=== PATIENT | male | born 1975 | race Caucasian/White ===

== ENCOUNTER 2016-07-10 10:30 | Emergency (ER) | payer BC ==
--- NOTE | ~2016-07-10 | HP ---
History And Physical [id number] [place]. [address] NAME: LIZA RICO : 71 STATUS : ADM Maximino PAT#: [id number] AGE: 41 ADM/REG DATE : 07/10/16 MR#: [id number] REPORT SERV DATE: 07/10/16 DICTATED BY: ZAYNAB [place] DATE: 07/10/16 REPORT STATUS : Draft TRANSCRIBED BY: MODL DATE: 07/10/16 DATE OF ADMISSION: 07/10/2016 CHIEF COMPLAINT: Chest pain. HISTORY OF PRESENT ILLNESS: This is a 41-year-old male with no prior history of coronary artery disease, who states onset of midsternal chest pain around 0640 this morning. He reports he was getting ready to go to work when he developed a sensation of "pressing under my rib cage" at the midsternum with radiation to the back. He went ahead and left for work and on arrival someone there checked his blood pressure, it was 182/110. His coworkers found him to be red faced and flushed. He states the pain is most severe, 7/10 in intensity. He took two baby aspirin and EMS was called. EMS gave him two more aspirin and his blood pressure was reportedly 172/112 on arrival, although I do not see this documented. The patient states the pain eased on the way to the hospital here and lasted approximately 45 minutes. There was no radiation nor was there any accompanying shortness of breath. The patient denies any prior cardiac workup. Denies personal history for PA, CVA, PE, or DVT. Denies any recent fever, cough, or chills. No other recent chest pain episodes. MEDICAL HISTORY: 1. Mixed hyperlipidemia with reported total cholesterol of 300, takes Krill oil. 2. Allergic rhinitis. 3. Bilateral heel spurs, takes NSAIDs. 4. Obesity. SURGICAL HISTORY: Tonsillectomy approximately 20 years ago and a right inguinal hernia repair. HOME MEDICATIONS: Zyrtec 10 mg daily, Advil 600 mg daily, Krill oil one cap daily, Aleve 660 mg daily, Mucinex D over the counter. ALLERGIES: NO KNOWN DRUG ALLERGIES. SOCIAL HISTORY: The patient is , at bedside. He works as a exercise teacher. Denies history of smoking. Denies alcohol or illicit drug use. FAMILY HISTORY: Grandfather and uncle both with PA in her early 40s. Father is alive and had CABG in his 50s. Siblings with hypertension and hyperlipidemia. No premature cardiovascular among first-degree relatives. REVIEW OF SYSTEMS: Negative except as indicated above. PHYSICAL EXAMINATION: VITAL SIGNS: Blood pressure 139/95, heart rate 78, temperature 97.8, respirations 12, pulse oximetry 100% room air. History And Physical [address] [address] NAME: LIZA RICO : 71 STATUS : ADM Maximino PAT#: [id number] AGE: 41 ADM/REG DATE : 07/10/16 MR#: [id number] REPORT SERV DATE: 07/10/16 DICTATED BY: ZAYNAB [place] DATE: 07/10/16 REPORT STATUS : Draft TRANSCRIBED BY: DANIELE DATE: 07/10/16 GENERAL: Well developed, well nourished, in no acute distress HEENT: Anicteric. Normal EOM. Head normocephalic. PERRLA, no xanthelasma. NECK: Supple. No JVD. Carotids normal without bruits. LUNGS: Clear to auscultation bilaterally anterior and posterior. Respirations even and unlabored. CARDIAC: S1, S2 regular rate and rhythm. No murmurs, rubs, or gallops. No chest wall tenderness. ABDOMEN: Normal bowel sounds. Soft and nontender to palpation. No masses or organomegaly. EXTREMITIES: Trace edema to the bilateral lower extremities. Normal distal pulses. No calf tenderness. DP/PT and radial pulses palpable bilaterally. No clubbing or cyanosis. SKIN: Warm and dry. Normal turgor. No pallor or cyanosis. MUSCULOSKELETAL: Moving all extremities x4. Normal muscle strength. NEURO/PSYCH: Alert and oriented with appropriate affect. LABORATORY DATA: Sodium 142, potassium 4.5, BUN 13, creatinine 1.0, magnesium 2.4, white blood count 5.5, hemoglobin 13.6, hematocrit 38.7. Troponin less than 0.02. Chest x-ray shows no acute cardiopulmonary processes. EKG indicates sinus bradycardia with no ischemic changes. ASSESSMENT/PLAN: 1. Midsternal chest pain in a 41-year-old male with cardiovascular risk factors of premature coronary artery disease and mixed hyperlipidemia. His initial presentation is negative for acute coronary syndrome. We will plan to repeat a troponin approximately one hour as well as EKG. If these remain normal, we will send the patient for a treadmill only stress test today. If stress testing is low risk, we will plan to discharge him home later today with close followup with his primary care physician. 2. Elevated blood pressure. This could be secondary to the patient's pain and stress test. We will continue to monitor. If two more blood pressures are elevated above 140/90, we will begin a blood pressure medicine on discharge. 3. Family history of early coronary artery disease. 4. Obesity. I have counseled patient on dietary changes as well as incorporating exercise into his lifestyle. 5. Mixed hyperlipidemia, currently on Krill oil. Continue follow up with his primary care physician regarding lipid profile and consider starting statin. 6. Overuse of NSAIDs. I have instructed the patient to stop the ibuprofen and only take Aleve 2 tabs twice a day max. I have instructed him only to take this with food. The patient denies any indigestion currently. DBT/DANIELE Zaynab Ny NP / [phone] History And Physical [address] [address] NAME: LIZA RICO : 71 STATUS : ADM Maximino PAT#: [id number] AGE: 41 ADM/REG DATE : 07/10/16 MR#: [id number] REPORT SERV DATE: 07/10/16 DICTATED BY: ZAYNAB [place] DATE: 07/10/16 REPORT STATUS : Draft TRANSCRIBED BY: DANIELE DATE: 07/10/16 CC: Ifrah Collazo, MSN, [employer] APPLICATOR-BC Patricia Giraldo M.D.
[2016-07-10 09:46] LABS: BASOPHILS 0.5 %; BASOPHILS ABSOLUTE 0.03 10/3/uL (0.0-0.16); EOSINOPHILS 0.9 %; EOSINOPHILS ABSOLUTE 0.05 10/3/uL (0.0-0.53); ER CBC TAT 0 Hrs 05 Mins; HEMATOCRIT 38.7 % (40.0-51.0); HEMOGLOBIN 13.6 g/dL (13.6-17.8); IMMATURE GRANULOCYTES 0.2 %; IMMATURE GRANULOCYTES ABSOLUTE 0.01 10/3/uL (0.0-0.11); LYMPHOCYTES 20.4 %; LYMPHOCYTES ABSOLUTE 1.13 10/3/uL (0.67-4.30); MANUAL DIFF NO %; MEAN CORPUS HGB CONC 35.1 g/dL (32.0-36.0); MEAN CORPUSCULAR HEMOGLOB 32.3 pg (26.0-34.0); MEAN CORPUSCULAR VOLUME 91.9 fL (80-100); MEAN PLATELET VOLUME 11.1 fL (9.2-13.0); MONOCYTES ABSOLUTE 0.61 10/3/uL (0.21-1.20); PLATELET COUNT 117 10/3/uL (150-400); RBC DISTRIBUTION WIDTH 13.1 % (12.0-16.0); RED CELL COUNT 4.21 10/6/uL (4.7-6.1); WHITE BLOOD CELLS 5.5 10/3/uL (4.5-10.5)
[2016-07-10 09:58] LABS: INTERNATIONAL NORMAL RATI 1.2 UNITS (-); PROTIME (NOT ORD) 14.6 SEC (12.0-14.5)
[2016-07-10 09:59] LABS: PARTIAL THROMBO TIME 32.2 SEC (22.5-37.2)
[2016-07-10 10:02] LABS: BUN (BLOOD UREA NITROGEN) 13 MG/DL (6-23); CALCIUM, SERUM 8.8 MG/DL (8.5-10.4); CHEST PAIN PROFILE TAT 0 Hrs 21 Mins; CHLORIDE, SERUM 111 MMOL/L (96-112); CO2 (CARBON DIOXIDE) 24 MMOL/L (24-34); CREATININE 1.04 MG/DL (0.70-1.30); GFR AFRICAN AMERICAN 101 ML/MIN (>=60); GFR NON AFRICAN AMERICAN 88 ML/MIN (>=60); GLUCOSE, SERUM 115 MG/DL (60-99); POTASSIUM, SERUM 4.5 MMOL/L (3.5-5.3); SODIUM, SERUM 143 MMOL/L (135-148); TROPONIN I <0.02 NG/ML (<0.05)
[2016-07-10] MEDS ORDERED: ADVIL PO (10:39)
[2016-07-10] MEDS ORDERED: KRILLOIL PO (10:39)
[2016-07-10] MEDS ORDERED: ALEVE220 MG PO (10:39)
[2016-07-10] MEDS ORDERED: ZYRTEC ALLGY10 MG PO (10:39)
[2016-07-10] MEDS ORDERED: PRIN10 PO (20:32)
== END 2016-07-10 21:17 | disposition home or self-care (01) ==
LOC: ER 10:30
PROVIDERS: Emergency Medicine
DX: R07.89 Other chest pain (principal)
CPT/HCPCS: 71010; 80048; 83735; 84484; 85025; 85610; 85730; 93005; 93017; 93458; 99152; 99153; 99285; A9270-GY; C1769; C1887; C1894; J2250; J3010; Q9967